=== PATIENT | female | born 1975 | race Caucasian/White ===

== ENCOUNTER → 2018-05-09 | Outpatient (CLI) | payer BC ==
[~2018-05-09] MED LIST: IBU800 PO; PNV1TABL92 PO
--- NOTE | 2018-05-10 10:24 | RADIOLOGY IMAGING REPORT ---
FACILITY: [facility] PATIENT NAME: ZOE HOOD : [id number] MR: [id number] V: [id number] EXAM DATE: [id number] ORDERING PHYSICIAN: CHARLENE REYNAGA TECHNOLOGIST: Winifred Franco PROCEDURE:BILATERAL DIGITAL SCREENING MAMMOGRAM WITH CAD ASSISTED INTERPRETATION & 3D TOMOSYNTHESIS COMPARISON:Prior mammogram 03/27/14. INDICATIONS:SCREENING FINDINGS: Moderately dense heterogeneous fibroglandular tissue is seen throughout the breasts. The parenchymal pattern has remained stable allowing for difference in mammographic technique & patient positioning. There is no evidence of malignant appearing mass, malignant appearing calcifications or other secondary sign of malignancy in either breast. DIAGNOSTIC CATEGORY 1--NEGATIVE. RECOMMENDATIONS: ROUTINE MAMMOGRAM AND CLINICAL EVALUATION. IMPRESSION: BIRADS 1: Negative. No significant abnormality is seen. Dictated by: Namrata Pereyra M.D. on 05/09/2018 at 16:31 Transcribed by: DAGO on 05/10/2018 at 9:00 Approved by: Namrata Pereyra M.D. on 05/10/2018 at 10:23 [facility]
== END ==
LOC: MAMO 01:12
PROVIDERS: ATTEND Physician Assistant Medical
DX: Z12.31 Encounter for screening mammogram for malignant neoplasm of breast (principal); F17.210 Nicotine dependence, cigarettes, uncomplicated
CPT/HCPCS: 77063; 77067